=== PATIENT | female | born 1980 | race Caucasian/White ===

== ENCOUNTER → 2016-11-30 17:02 | Outpatient (CLI) | payer BC | END | disposition home or self-care (01) | LOC: D.MAMMO 11-29 14:30 → D.US 11-29 15:00 → D.MAMMO 11:30 | DX: N64.4 Mastodynia (principal); N63 Unspecified lump in breast ==

== ENCOUNTER → 2019-03-28 07:23 | Outpatient (CLI) | payer BC | END | disposition home or self-care (01) | LOC: D.US 07:23 | PROVIDERS: ATTEND Nurse Practitioner | DX: R10.11 Right upper quadrant pain (principal) ==